=== PATIENT | male | born 1965 | race Caucasian/White ===

== ENCOUNTER 2019-04-10 10:40 | Outpatient (CLI) | payer BC ==
--- NOTE | 2019-04-10 14:43 | MRI ---
MRI RIGHT KNEE WITHOUT CONTRAST: HISTORY: M25.561, pain in knee. COMPARISON: Knee radiographs 03/01/2017. FINDINGS: Medial Meniscus: Intact. Lateral Meniscus: Intact. The ACL, PCL, MCL, and LCL are all intact. Quadriceps tendon, patella, and patella tendon are intact. Cartilage: Patellofemoral Compartment: There is some cartilage blistering. Uncinate fibers and cartilage fissur ing along the medial patella facet. There are also full-thickness cartilage fissures of the inferior medial trochlea with early osteophyt e formation. Medial Compartment: Intact. Lateral Compartment: Intact. Soft tissues: There is a small popliteus bursa effusion. No significant popliteal cyst. Normal lyndsey unt of joint fluid. Moderate edema within the infrapatellar PICA. No free bodies in the joint. Bones: No fracture, malalignment, nor contusion. IMPRESSION: 1. 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 2. Small popliteus bursa effusion. 3. Intact menisci and cruciate ligaments. 4. Abnormal edema with an inferior patella plica can be seen with infrapatella plica injury. 5. Low-grade edema in the prefemoral fat pad suggesting impingement. POS: HOME
== END 2019-04-10 10:41 | disposition home or self-care (01) ==
LOC: SCSMRI 10:40
PROVIDERS: ATTEND Family Medicine
DX: M25.561 Pain in right knee (principal); M22.41 Chondromalacia patellae, right knee; M25.461 Effusion, right knee

== ENCOUNTER 2020-03-09 09:44 | Outpatient (CLI) | payer BC ==
--- NOTE | 2020-03-09 12:16 | MRI ---
MR CERVICAL SPINE WITHOUT CONTRAST INDICATION: 54-year-old male with radiculopathy and left arm numbness TECHNIQUE: Multiplanar multisequence MR images were obtained of the cervical spine without contrast. COMPARISON: None FINDINGS: Posterior fossa: Within normal limits. Bone marrow signal intensity: Normal Spinal alignment: There is some straightening of the normal cervical lordosis Craniocervical junction: Normal appearing. Prevertebral and perivertebral soft tissues: Visualized soft tissues appear within normal limits. Vertebral levels: C2-C3: There is a left paracentral disc protrusion. There is moderate right and mild left facet joint degenerative change. There is mild right neural foraminal narrowing. C3-4: There is moderate to severe left facet joint degenerative change is uncovertebral hypertrophy i nducing severe left neural foraminal narrowing. Facet osteoarthrosis without vertebral hypertrophy induces mild right neural foraminal narrowing. There is a minimal disc osteophyte complex at this lev el induces mild central canal narrowing. C4-5: There is a mild broad-based bulge with uncovertebral hypertrophy and facet joint degenerative change inducing mild right neural foraminal narrowing and mild central canal narrowing. C5-C6: There is a broad-based disc bulge inducing moderate central canal narrowing with mild ventral cord flattening. There is uncovertebral hypertrophy facet joint degenerative change inducing moderate left and mild to moderate right neural foraminal narrowing. C6-C7:, There is a broad-based disc bulge inducing mild central canal narrowing with ventral effaceme nt of subarachnoid space. There is uncovertebral hypertrophy facet joint degenerative change inducing minimal bilateral neural foraminal narrowing. C7-T1: No appreciable central canal or neuroforaminal narrowing. IMPRESSION: 1. Moderate cervical spondylosis with multilevel central canal and neural foraminal narrowing as deta iled above. This is most pronounced at C5-6.
== END 2020-03-09 09:45 | disposition home or self-care (01) ==
LOC: SCSMRI 09:44
PROVIDERS: ATTEND Family Medicine
DX: M47.22 Other spondylosis with radiculopathy, cervical region (principal); M48.02 Spinal stenosis, cervical region
CPT/HCPCS: 72141

== ENCOUNTER 2020-07-07 07:48 | Outpatient (CLI) | payer BC, OTHER ==
[2020-07-07 11:07] LABS: Hemoglobin 15.5 g/dL (14.0-18.0); Mean Corpuscular HGB CONC 33.4 g/dL (32.0-36.0); Mean Corpuscular Hemoglobin 30.2 pg (27.0-31.0); Mean Corpuscular Volume 90.5 fL (78.0-98.0); Mean Platelet Volume 6.5 fL (7.4-10.4); Platelet Count 193 thou/uL (130-400); Red Blood Cell (RBC) Count 5.13 mill/uL (4.70-6.10)
[2020-07-07 11:31] LABS: Anion Gap 13 mmol/L (10-20); BUN (Urea Nitrogen) 23 mg/dL (8.4-25.7); Calc. Creatinine Clearance 0 mL/min (70-130); Carbon Dioxide 27 mmol/L (22-29); Chloride 105 mmol/L (98-107); Estimated GFR-MDRD Greater than 90; Glucose 148 mg/dL (70-105); Potassium 5.3 mmol/L (3.5-5.1); Sodium 140 mmol/L (136-145)
--- NOTE | 2020-07-07 17:32 | EKG ---
Test Reason : PREOP Blood Pressure : / mmHG Vent. Rate : 070 BPM Atrial Rate : 070 BPM P-R Int : 144 ms QRS Dur : 072 ms QT Int : 344 ms P-R-T Axes : -21 020 019 degrees QTc Int : 371 ms Normal sinus rhythm Normal ECG No previous ECGs available Confirmed by DR. Geovanny MCKINNON ([id number]) on 07/07/2020 5:32:17 PM Referred By: Hieu CHU Confirmed By:DR. Geovanny MCKINNON
[2020-07-07 19:00] LABS: SARS-CoV-2 MS2 Positive; SARS-CoV-2 N Gene Negative; SARS-CoV-2 S Gene Negative; SARS-CoV-2 by NAA Not Detected (NotDetected); SARS-CoV-2 orf1ab Negative
== END 2020-07-07 07:49 | disposition home or self-care (01) ==
LOC: LABBT 07:48
PROVIDERS: ATTEND Neurological Surgery
DX: Z01.818 Encounter for other preprocedural examination (principal); Z20.828 Contact with and (suspected) exposure to other viral communicable diseases; M54.12 Radiculopathy, cervical region
CPT/HCPCS: 80048; 85027; 87635; 93005; 93010; U0003

== ENCOUNTER 2020-07-12 06:55 | Observation (INO) | payer BC ==
[2020-07-09 10:05] VITALS: BMI 31.5
[~2020-07-12 06:55] MED LIST: Tamsulosin HCl 0.4 MG CAP PO SCH
[2020-07-12] MEDS ORDERED: Fentanyl 250 MCG/5 ML VIAL ONE (08:53)
[2020-07-12] MEDS ORDERED: Sodium Chloride 0.9% 10 ML ONE (09:41)
[2020-07-12] MEDS ORDERED: Promethazine HCl 25 MG/ML VIAL SLOW IVP PRN (10:47)
[2020-07-12] MEDS ORDERED: HYDROmorphone 2 MG/ML VIAL SLOW IVP PRN (10:47)
[2020-07-12] MEDS ORDERED: Meperidine HCl/PF 25 MG/ML VIAL SLOW IVP PRN ×2 (10:47→11:19)
[2020-07-12] MEDS ORDERED: Ketorolac Tromethamine 30 MG/ML VIAL IVP PRN (10:47)
[2020-07-12] MEDS ORDERED: Ondansetron HCl/PF 4 MG/2 ML Vial IVP PRN (10:47)
[2020-07-12] MEDS ORDERED: Promethazine HCl 25 MG/ML VIAL IM PRN ×2 (10:47→11:33)
[2020-07-12] MEDS ORDERED: Fentanyl 100 MCG/2 ML VIAL ONE (11:01)
--- NOTE | 2020-07-12 11:11 | OP ---
DATE OF PROCEDURE: 07/12/2020 CONTRACTS REPRESENTATIVE: Henry. PROCEDURES PERFORMED: Anterior cervical diskectomy at C5-C6 and C6-C7, interbody arthrodesis, intervertebral biomechanical device, local morselized autograft, demineralized bone matrix, anterior titanium instrumentation at C5-C6 and C6-C7. DESCRIPTION OF PROCEDURE: The patient was brought to the operating room and intubated. He was positioned supine with head in modest extension on a gel-filled donut. An incision made in the right precervical area and dissected medial to the sternocleidomastoid muscle, identified the anterior cervical spine and the level was confirmed by x-ray. We debrided the anterior osteophytes, removed the intervertebral disks, and using the operative microscope and microdissection technique, completely removed the intervertebral disk to the level of the dura, completely decompressing the neural elements. The bony endplates were then decorticated and an appropriately-sized intervertebral biomechanical PEEK device was brought into the field, filled with demineralized bone matrix and local morselized autograft, and tapped in place securely at both C5-C6 and C6-C7. Next, an anterior plate was brought into field and secured to C5, C6, and C7 using two 14-mm screws at each level. The anterior plate was separate and distinct from the interbody devices and not attached to them in any way and not integral to them. Next, the wound was extensively irrigated and immaculate hemostasis was secured. The wound was then closed in anatomic layers over a drain. Job ID: [id number]
[2020-07-12] MEDS ORDERED: traMADol HCl 50 MG TAB PO PRN ×2 (11:15→11:16)
[2020-07-12] MEDS ORDERED: Acetaminophen/Codeine 30-300mg Tablet PO PRN ×2 (11:16→11:18)
[2020-07-12] MEDS ORDERED: diphenhydrAMINE 50 MG/ML VIAL IVP PRN (11:31)
[2020-07-12] MEDS ORDERED: diphenhydrAMINE 25 MG CAP PO PRN (11:32)
[2020-07-12] MEDS ORDERED: Promethazine 25 MG TAB PO PRN (11:34)
[2020-07-12] MEDS ORDERED: Promethazine HCl 12.5 MG SUPP PR PRN (11:35)
[2020-07-12] MEDS ORDERED: Ondansetron PF 4 MG/2 ML Vial IVP PRN (11:35)
[2020-07-12] MEDS: tiZANidine HCl 4 MG TAB PO PRN ×2 (13:09→21:12)
[2020-07-12] MEDS ORDERED: Lidocaine 1% PF 5 ML VIAL ONE (13:38)
[2020-07-12] MEDS ORDERED: PROPOFOL 200 MG/20 ML VIAL ONE (13:38)
[2020-07-12] MEDS ORDERED: Glycopyrrolate 0.2 MG/ML 5 ML SYRINGE ONE (13:38)
[2020-07-12] MEDS ORDERED: Ondansetron ORAL SOLN. 4 MG/5 ML UDCUP ONE (13:38)
[2020-07-12] MEDS ORDERED: Dexamethasone 20 MG/5 ML VIAL ONE (13:38)
[2020-07-12] MEDS ORDERED: Metoclopramide HCl 10 MG/2 ML VIAL ONE (13:38)
[2020-07-12] MEDS ORDERED: Rocuronium Bromide 10 MG/ML (10ML VIAL) ONE (13:38)
[2020-07-12] MEDS ORDERED: PHENYLEPHRINE-NS 100 MCG/ML 10 ML SYRINGE ONE (13:38)
[2020-07-12] MEDS ORDERED: CEFAZOLIN 2 GM in Premix Bag 1 BAG IVPB SCH (16:00)
[2020-07-12] MEDS: CEFAZOLIN 2 GM in Premix Bag 1 BAG IVPB SCH (17:13)
[2020-07-12] MEDS: Sodium Chloride 0.9% 1,000 ML IV SCH (17:28)
[2020-07-12] MEDS: Ibuprofen 200 MG TAB PO PRN (21:12)
[2020-07-13] MEDS: Sodium Chloride 0.9% 1,000 ML IV SCH (00:36)
[2020-07-13] MEDS: CEFAZOLIN 2 GM in Premix Bag 1 BAG IVPB SCH ×2 (02:00→08:51)
[2020-07-13] MEDS ORDERED: Tamsulosin HCl 0.4 MG CAP PO SCH (06:00)
--- NOTE | 2020-07-13 06:49 | DIS ---
DATE OF ADMISSION: 07/12/2020 DATE OF DISCHARGE: 07/13/2020 Patient is a 55-year-old male, recently evaluated by us for neck pain and left-sided cervical radiculopathy. He was found to have degenerative disk disease and left-sided foraminal stenosis from C5-C7. Patient underwent C5-C7 ACDF on 11/12/2019. Following the surgery, he was transitioned to the Med/Surg floor, where his pain has been well controlled with p.o. medications, he is tolerating a regular diet, and he is voiding appropriately. He did have a KARLOS drain, which had minimal output overnight. This was removed on postoperative day #1. We will plan to dismiss the patient to home. I will follow up in 2 weeks. I have discussed precautions. BOTTLE CARRIER Lorena checked prior to discharge. Job ID: [id number]
[2020-07-13 08:38] VITALS: BP 124/75; TEMP 98
[2020-07-13] MEDS: Ibuprofen 200 MG TAB PO PRN (08:39)
[2020-07-13] MEDS ORDERED: Calcium Carbonate 600 MG + Vit D TAB PO SCH (09:00)
[2020-07-13] MEDS ORDERED: Fish Oil 1,000 MG CAP PO SCH ×2 (09:00)
[2020-07-13] MEDS ORDERED: BARIATRIC ADVANTAGE PO SCH (09:00)
[2020-07-13] MEDS ORDERED: FLU VACC QS2020-21(6MOS UP)/PF 60 MCG/0.5 ML SYRINGE IM ONE (09:00)
[2020-07-13] MEDS ORDERED: Multivit, Therapeutic 1 TAB PO SCH (09:00)
== END 2020-07-13 08:58 | disposition home or self-care (01) ==
LOC: SDC 06:55 → SURG B 12:39
PROVIDERS: ADMIT Neurological Surgery; ATTEND Neurological Surgery
PROC: 0RG20A0 Fusion of 2 or more Cervical Vertebral Joints with Interbody Fusion Device, Anterior Approach, Anterior Column, Open Approach (ICD-10-PCS; principal; 2020-07-12)
PROC: 0RG2070 Fusion of 2 or more Cervical Vertebral Joints with Autologous Tissue Substitute, Anterior Approach, Anterior Column, Open Approach (ICD-10-PCS; 2020-07-12)
PROC: 0RT30ZZ Resection of Cervical Vertebral Disc, Open Approach (ICD-10-PCS; 2020-07-12)
DX: M50.122 Cervical disc disorder at C5-C6 level with radiculopathy (principal); M48.02 Spinal stenosis, cervical region; E11.9 Type 2 diabetes mellitus without complications; Z79.899 Other long term (current) drug therapy; Z88.5 Allergy status to narcotic agent
CPT/HCPCS: 76000; 90471; 90732; 96365; 96372; C1713; C1776; G0009; G0378; J0690; J1100; J2550; J2704; J2765; J3010; J3490; Q0162

== ENCOUNTER 2020-07-29 08:29 | Outpatient (CLI) | payer BC ==
[~2020-07-29 08:29] MED LIST changes: +HYDROmorphone 2 MG/ML VIAL SLOW IVP PRN; +Ketorolac Tromethamine 30 MG/ML VIAL IVP PRN; +Meperidine HCl/PF 25 MG/ML VIAL SLOW IVP PRN; +Ondansetron HCl/PF 4 MG/2 ML Vial IVP PRN; +Promethazine HCl 25 MG/ML VIAL IM PRN; +Promethazine HCl 25 MG/ML VIAL SLOW IVP PRN; -Tamsulosin HCl 0.4 MG CAP PO SCH
--- NOTE | 2020-07-29 09:14 | RAD ---
CERVICAL SPINE 3 VIEWS: Date: 07/29/2020 HISTORY: Cervical radiculopathy. Postop follow-up. FINDINGS: Postop changes are noted with anterior fusion changes seen. Anterior plate and screws transfix C5, C6 , and C7 with interbody implants at these levels. The vertebral bodies maintain normal height and ali gnment. The other disc spaces are preserved. No significant degenerative change. IMPRESSION: Postop anterior fusion changes at C5, C6, and C7. POS: [facility]
== END 2020-07-29 08:30 | disposition home or self-care (01) ==
LOC: TBSIIMAG 08:29
PROVIDERS: ATTEND Neurological Surgery
DX: M54.12 Radiculopathy, cervical region (principal); Z98.1 Arthrodesis status
CPT/HCPCS: 72040

== ENCOUNTER 2020-09-22 11:26 | Outpatient (CLI) | payer BC, OTHER ==
--- NOTE | 2020-09-22 14:45 | RAD ---
CERVICAL SPINE 4 VIEWS: HISTORY: Cervical radiculopathy.. COMPARISON: Comparison is made to cervical spine films of 07/29/2020. FINDINGS/IMPRESSION: Postoperative changes are again noted. Anterior plate and screws transfix C5, C6, and C7 with interb lillian implants. Posterior spondylosis at C5-6 is noted. Posterior alignment is preserved. No signifi cant interval change noted. POS: [facility]W
== END 2020-09-22 11:27 | disposition home or self-care (01) ==
LOC: TBSIIMAG 11:26
PROVIDERS: ATTEND Neurological Surgery
DX: M47.22 Other spondylosis with radiculopathy, cervical region (principal); Z98.890 Other specified postprocedural states
CPT/HCPCS: 72040

== ENCOUNTER 2021-01-14 10:35 | Outpatient (CLI) | payer BC | END 2021-01-14 10:36 | disposition home or self-care (01) | LOC: TBSIIMAG 10:35 | PROVIDERS: ATTEND Neurological Surgery | DX: M54.12 Radiculopathy, cervical region (principal); Z98.890 Other specified postprocedural states | CPT/HCPCS: 72040 ==

== ENCOUNTER 2021-09-28 10:32 | Outpatient (CLI) | payer BC | END 2021-09-28 10:33 | disposition home or self-care (01) | LOC: CT 10:32 | PROVIDERS: ATTEND Neurological Surgery | DX: M48.02 Spinal stenosis, cervical region (principal); M50.322 Other cervical disc degeneration at C5-C6 level; M47.812 Spondylosis without myelopathy or radiculopathy, cervical region; Z98.1 Arthrodesis status; Z98.890 Other specified postprocedural states | CPT/HCPCS: 72125 ==